=== PATIENT | female | born 1960 | race Caucasian/White ===

== ENCOUNTER → 2016-11-23 | Outpatient (CLI) | payer MEDICARE ==
[~2016-11-23] MED LIST: ACIPHEX20 MG PO; ADVIL200 MG PO; BENAZEPRIL HCL40 MG PO; CPAP INH; DITROPAN5 MG PO; FEOSOL325 MG PO; HYDRODIURIL25 MG PO; LACTINEX (FLORA1 TAB PO; LEVAQUIN 750 M750 MG PO; MIRAPEX1 MG PO; MOTRIN400 MG PO; NORCO 5-325 TA1 EACH PO; PROBIOTIC1 EAC4 PO; TYLENOL PM EX-1 EACH PO; VITAMIN D1000 UNIT PO
[2016-11-23 14:11] LABS: ALBUMIN 3.3 gm/dL (3.5-5.0); ANION GAP 12.9 (10.0-19.0); CALCIUM 8.4 mg/dL (8.5-10.5); CREATININE 1.3 mg/dL (0.5-1.1); MAGNESIUM 2.1 mg/dL (1.8-2.6); PHOSPHORUS 3.3 mg/dL (2.5-4.9); POTASSIUM 3.9 mMol/L (3.7-5.1)
== END | disposition disaster alternative care site (69) ==
LOC: LCNC 13:57
PROVIDERS: Internal Medicine Interventional Cardiology
DX: R00.2 Palpitations (principal)

== ENCOUNTER → 2016-11-25 | Outpatient (CLI) | payer MEDICARE ==
--- NOTE | ~2016-11-25 | ESTC ---
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 Risk Factors The patient risk factors include:obesity, former tobacco use, previous NE>7 days and ( years not smokin). Conclusions Summary Cardiolite SPECT images demonstrates homogenous uptake of radioactive tracer. There is no evidence of inducible reversible defect and no evidence of underlying fixed defect. TID ratio is elevated at 1.21 which may serve as a surrogate marker of ischemia Gated images show normal left ventricular systolic function without inducible wall motion abnormalities. LVEF 60% Stress Protocols Resting ECG Pre-stress physical exam: Patient assessed by César ORTIZ prior to testing. Chest - CTA Cardio - RRR, S1, S2 Predicted HR: 162 bpm HR response: Appropriate BP response: Appropriate Reason for termination:Infusion complete ECG Findings Increased amplitude of TWI and new TWI in lead II Arrhythmias No rhythm abnormality. Symptoms Shortness of breath. Complications Procedure complication: None. Stress Interpretation Appropriate hemodynamic response to Lexiscan. No significant ST-T wave changes with Lexiscan. ECG portion is negative for ischemia by diagnostic criteria but does have nonspecific twave changes with lexiscan infusion. Will correlate with nuclear images. Imaging Results Applied corrections - Motion correction applied High risk findings Summed scores - LV dilatation (TID) : 1.21 - Summed stress score: 12 - Summed rest score: 6 - Summed difference score: 6 Stress ejection Ejection fraction:59 % EDV :177 ml ESV :72 ml Stroke volume :105 ml LV mass :170 gr Imaging Protocols Rest Stress Isotope:Tc99m Sestamibi IV Isotope: Tc99m Sestamibi IV Isotope dose:14.7 mCi Isotope dose:43.6 mCi Date:11/25/2016 07:23 Date:11/25/2016 09:04 Technique: SPECT Technique: Gated Supine SPECT Supine Scan Time:45-60 minutes post Scan Time:45-60 minutes post injection injection Procedure Medications - Regadenoson (Lexiscan) 0.4 mg IV over 10-15 sec. I.V. . Medical History Admission Data Admission date: 11/25/2016 Admission Time: 07:04 Hospital Status: Outpatient. Signatures dtt: Jorge Luis Birch (cardio) dtd: 11/25/16 0900 Physician Self Edit
== END | disposition disaster alternative care site (69) ==
LOC: GRAD 07:04
DX: R06.02 Shortness of breath (principal); E66.9 Obesity, unspecified; I25.2 Old myocardial infarction; Z87.891 Personal history of nicotine dependence
CPT/HCPCS: A9500; J0280; J0461; J2785

== ENCOUNTER → 2016-12-01 | Outpatient (CLI) | payer MEDICARE ==
[2016-12-01 09:04] LABS: BASOPHIL % 0.2 %; EOSINOPHIL # 0.1 K/uL (0.0-0.5); EOSINOPHIL % 0.6 %; HEMATOCRIT 35.2 % (33.0-46.0); HEMOGLOBIN 10.9 g/dL (10.0-15.0); IMMATURE GRANULOCYTE % 0.3 %; LYMPHOCYTE # 1.2 K/uL (0.8-4.0); LYMPHOCYTE % 13.3 %; MCH 30.4 pg (27.0-34.0); MCV 98.3 fl (83.0-98.0); MONOCYTE # 0.6 K/uL (0.0-1.0); MPV 10.8 fl (9.4-12.4); NEUTROPHIL # (ANC) 7.4 K/uL (1.8-7.8); NEUTROPHIL % 79.6 %; NRBC % 0 /100WBC (0-0.00); PLATELET COUNT 266 K/uL (150-450); RBC 3.58 M/uL (3.50-5.50); RDW-CV 15.8 % (11.9-14.6); WBC 9.3 K/uL (4.0-11.0)
[2016-12-01 09:31] LABS: BILIRUBIN URINE NEGATIVE (NEGATIVE); BLOOD URINE 10 /UL (NEGATIVE); COLOR URINE YELLOW (YELLOW); GLUCOSE URINE NEGATIVE (NEGATIVE); KETONE URINE NEGATIVE (NEGATIVE); LEUKOCYTES URINE 100 /UL (NEGATIVE); NITRITE URINE NEGATIVE (NEGATIVE); PROTEIN URINE 15 mg/dL (NEGATIVE); SPEC GRAVITY URINE 1.015 (1.003-1.035); TURBIDITY URINE 1+ (CLEAR); UROBILINOGEN URINE NORMAL (NORMAL)
[2016-12-01 09:53] LABS: WBC URINE 50-100 #/HPF (NEGATIVE)
[2016-12-01 09:55] LABS: BACTERIA URINE MANY (NEGATIVE); RBC URINE 0-2 #/HPF (NEGATIVE); WBC CLUMPS URINE MANY (NEGATIVE)
== END ==
LOC: LCNC 08:56
PROVIDERS: Internal Medicine Interventional Cardiology
DX: R00.1 Bradycardia, unspecified (principal)

== ENCOUNTER 2016-12-10 05:56 | Day surgery (SDC) | payer MEDICARE ==
[~2016-12-10] VITALS: Ht 170.2 cm; Wt 108.6 kg
--- NOTE | ~2016-12-10 | OR ---
PATIENT'S NAME: ORVILLE CHEN [facility] AGE: 56 Y [address] ROOM: [place] [address] LOCATION: GPCU ADMIT DATE: 12/10/2016 OR/Procedure Report DISCHARGE DATE: 12/11/2016 FAMILY PHYSICIAN: Pascual Waldrop MD ATTENDING PHYSICIAN: Jorge Luis Dhillon SURGEON: Jorge Luis Dhillon MD PRODUCTION LINE ASSEMBLER: DATE OF PROCEDURE: 12/10/2016 PROCEDURE: Dual chamber pacemaker implantation INDICATION: Symptomatic sick sinus rhythm PROCEDURE/FINDINGS: Mrs. Chen was brought to the cardiac refuse laborer in the fasting state and prepped and draped in the normal manner. 1% lidocaine was used for local skin infiltration of the left infraclavicular region. An 18 gauge Cook needle was advanced to the left subclavian vein through which an 0.025 wire was placed. Needle was removed. Proximal end of the wire was attached to the surgical gown with a hemostat. The 18 gauge Cook needle was again used for a second access. 0.025 wire was placed. Needle was removed. Proximal end of the wire was attached to the surgical gown with a hemostat. Attention is then turned towards creation of the pacemaker pocket where additional 1% lidocaine was given. Next, a #11 blade was used for primary skin incision. Following this, use of the Bovie cautery as well as blunt dissection was used for identification of the pectoralis fascia. This was entered into and dissected both cephalad as well as caudally. Following this the previously placed 0.025 wires were brought through the skin into the pacemaker pocket. The first wire had a 7F sheath placed onto it. Wire and dilator were removed. Using fluoroscopic guidance, the right ventricular lead was placed. This is a [employer] model #7741, serial #[id number]. Thresholds were obtained showing an intrinsic R-wave of 2.8 mV, threshold 0.7 volts at 0.4 milliseconds pulse, impedance of 562 ohms. Following this the anchor sleeve was sewn into the pectoralis muscle using two interrupted sutures of zero of silk. The remaining wire had a 7F sheath placed onto it. Wire and dilator were removed. Using fluoroscopic guidance, the right atrial lead was placed. This is a [employer] model #7740, serial #[id number]. Thresholds show a sensing P wave of 3.3 mV, threshold 0.6 volts at 0.4 milliseconds pulse, impedance of 575 ohms. Following this the shoulder sleeve was sewn into the pectoralis muscle using two interrupted sutures of zero of silk. Following this these leads were then connected to the pacemaker generator which is a [employer], model #L111, serial #[id number]. The generator with the connected leads were placed into the pacemaker pocket. PATIENT'S NAME: ORVILLE CHEN [facility] AGE: 56 Y [address] ROOM: [place] [address] LOCATION: GPCU ADMIT DATE: 12/10/2016 OR/Procedure Report DISCHARGE DATE: 12/11/2016 FAMILY PHYSICIAN: Pascual Waldrop MD ATTENDING PHYSICIAN: Jorge Luis Dhillon Overlying subcutaneous tissue was closed with 2-0 Vicryl in a running fashion. Following this, subcuticular layer was closed with 4.0 Vicryl also in a running fashion. Steri-strips were placed as well as a pressure dressing and Tegaderm dressing. The patient had previously been placed in a shoulder immobilizer prior to the start of the study. CONCLUSION: 1. Dual chamber pacemaker implantation for symptomatic sick sinus syndrome. 2. Patient is instructed to use the shoulder immobilizer for the next one week. 3. The patient will be instructed on the use of the home remote monitoring Chad system. JORGE LUIS DHILLON MD DJM/gb /[id number] CC: Printer CARDIOPULMINARY d: 12/14/16 1635 t: 12/17/16 1333, OPERATIVE SUMMARY
[~2016-12-10 05:56] MED LIST changes: -LACTINEX (FLORA1 TAB PO; -NORCO 5-325 TA1 EACH PO; -TYLENOL PM EX-1 EACH PO
[2016-12-10 06:41] LABS: BILIRUBIN URINE NEGATIVE (NEGATIVE); BLOOD URINE 25 /UL (NEGATIVE); COLOR URINE YELLOW (YELLOW); GLUCOSE URINE NEGATIVE (NEGATIVE); KETONE URINE NEGATIVE (NEGATIVE); LEUKOCYTES URINE 500 /UL (NEGATIVE); NITRITE URINE POSITIVE (NEGATIVE); PROTEIN URINE 30 mg/dL (NEGATIVE); SPEC GRAVITY URINE 1.015 (1.003-1.035); TURBIDITY URINE 1+ (CLEAR); UROBILINOGEN URINE NORMAL (NORMAL)
[2016-12-10 06:48] LABS: INR - (THERAPEUTIC) 0.95 (0.92-1.07)
[2016-12-10 06:53] LABS: ALBUMIN 3.7 gm/dL (3.5-5.0); ANION GAP 9.9 (10.0-19.0); CALCIUM 8.6 mg/dL (8.5-10.5); CREATININE 1.4 mg/dL (0.5-1.1); PHOSPHORUS 3.8 mg/dL (2.5-4.9); POTASSIUM 3.9 mMol/L (3.7-5.1)
[2016-12-10 06:57] LABS: WBC URINE FULL FIELD #/HPF (NEGATIVE)
[2016-12-10 06:58] LABS: BACTERIA URINE FEW (NEGATIVE); EPITHELIAL URINE 0-2 #/HPF (NEGATIVE)
[2016-12-10] MEDS ORDERED: TYLENOL PM EX-1 EACH PO (07:17)
[2016-12-11] MEDS ORDERED: LACTINEX (FLORA1 TAB PO (09:19)
[2016-12-11] MEDS ORDERED: NORCO 5-325 TA1 EACH PO (09:22)
== END 2016-12-11 11:10 | disposition disaster alternative care site (69) ==
LOC: GPCU 05:56 → GSDC 05:56 → GPCU 08:18 → GSDC 12-11 11:10
PROVIDERS: Internal Medicine Interventional Cardiology
PROC: 02H63JZ Insertion of Pacemaker Lead into Right Atrium, Percutaneous Approach (ICD-10-PCS; principal; 2016-12-10)
PROC: 02HK3JZ Insertion of Pacemaker Lead into Right Ventricle, Percutaneous Approach (ICD-10-PCS; principal; 2016-12-10)
PROC: 0JH606Z Insertion of Pacemaker, Dual Chamber into Chest Subcutaneous Tissue and Fascia, Open Approach (ICD-10-PCS; principal; 2016-12-10)
DX: I49.5 Sick sinus syndrome (principal); I10 Essential (primary) hypertension; I27.2 Other secondary pulmonary hypertension; R60.0 Localized edema; G47.33 Obstructive sleep apnea (adult) (pediatric); Z96.653 Presence of artificial knee joint, bilateral; Z87.891 Personal history of nicotine dependence; Z88.1 Allergy status to other antibiotic agents; Z88.8 Allergy status to other drugs, medicaments and biological substances; E66.9 Obesity, unspecified; Z68.30 Body mass index [BMI] 30.0-30.9, adult
CPT/HCPCS: C1785; C1898; J0690; J2001; J2250; J3010; J3370; J7030

== ENCOUNTER → 2016-12-25 | Outpatient (CLI) | payer MEDICARE ==
[~2016-12-25] MED LIST changes: +LACTINEX (FLORA1 TAB PO; +NORCO 5-325 TA1 EACH PO; +TYLENOL PM EX-1 EACH PO
[2016-12-25 15:27] LABS: ALBUMIN 3.2 gm/dL (3.5-5.0); ANION GAP 11.4 (10.0-19.0); CALCIUM 7.9 mg/dL (8.5-10.5); CREATININE 1.3 mg/dL (0.5-1.1); MAGNESIUM 1.9 mg/dL (1.8-2.6); PHOSPHORUS 3.6 mg/dL (2.5-4.9); POTASSIUM 4.4 mMol/L (3.7-5.1)
== END | disposition disaster alternative care site (69) ==
LOC: LCNC 15:14
PROVIDERS: Internal Medicine Interventional Cardiology
DX: I10 Essential (primary) hypertension (principal)

== ENCOUNTER → 2016-12-25 | Outpatient (CLI) | payer MEDICARE | END | disposition disaster alternative care site (69) | LOC: GRAD 13:23 | DX: Z48.812 Encounter for surgical aftercare following surgery on the circulatory system (principal); Z95.0 Presence of cardiac pacemaker ==